=== PATIENT | female | born 1965 | race Asian ===

== ENCOUNTER → 2021-02-25 08:56 | Outpatient (CLI) | payer OTHER, SELFPAY ==
[2021-02-25] MEDS: COVID-19 VACC #1, MRNA(MOD) 100 MCG/0.5 ML VIAL IM (09:05)
== END ==
PROVIDERS: Visit Provider Internal Medicine
DX: Z23 Encounter for immunization (principal)
CPT/HCPCS: 0011A; 91301

== ENCOUNTER → 2021-03-25 08:55 | Outpatient (CLI) | payer OTHER, SELFPAY ==
[2021-03-25] MEDS: COVID-19 VACC #2, MRNA(MOD) 100 MCG/0.5 ML VIAL IM (09:08)
== END ==
PROVIDERS: Visit Provider Internal Medicine
DX: Z23 Encounter for immunization (principal)
CPT/HCPCS: 0012A; 91301